=== PATIENT | male | born 1965 | race Native Hawaiian/Other Pacific Islander ===

== ENCOUNTER 2018-05-15 19:32 | Emergency (ER) | payer OTHER ==
[~2018-05-15] VITALS: Ht 167.6 cm; Wt 105.0 kg
[~2018-05-15 19:32] MED LIST: UNABLE
[2018-05-15] MEDS ORDERED: HCTZ 25MG TAB25 MG PO (21:10)
[2018-05-15] MEDS ORDERED: ONGLYZA5 MG PO (21:10)
[2018-05-15] MEDS ORDERED: ABILIFY30 MG PO (21:10)
[2018-05-15] MEDS ORDERED: SEROQUEL300 MG PO (21:11)
[2018-05-15] MEDS ORDERED: DULCOLAX STOOL100 MG PO (21:11)
[2018-05-15] MEDS ORDERED: CRESTOR20 MG PO (21:12)
[2018-05-15] MEDS ORDERED: MICRO-K 10 EXT10 MEQ PO (21:12)
[2018-05-15] MEDS ORDERED: VISTARIL 2525 MG/CAP PO (21:12)
[2018-05-15] MEDS ORDERED: GLUCOTROL 5M5 MG/TAB PO (21:12)
[2018-05-15] MEDS ORDERED: LOPRESSOR100 MG PO (21:13)
[2018-05-15] MEDS ORDERED: EFFEXOR-XR150 MG PO (21:13)
[2018-05-15] MEDS ORDERED: PRINIVIL20 MG PO (21:13)
[2018-05-15] MEDS ORDERED: VITAMIN D31000 I1 PO (21:14)
[2018-05-15] MEDS ORDERED: EPA FISH OIL1 SGL PO (21:14)
[2018-05-15] MEDS ORDERED: DESYREL 100MG100 MG PO (21:14)
[2018-05-15] MEDS ORDERED: GLUCOPHAGE500 MG/TAB PO (21:15)
[2018-05-15 21:19] VITALS: BP 123/63; PULSE 90; TEMP 98.6
== END 2018-05-15 21:18 | disposition home or self-care (01) ==
LOC: COL.ER 19:32
DX: S90.02XA Contusion of left ankle, initial encounter (principal); E11.9 Type 2 diabetes mellitus without complications; I10 Essential (primary) hypertension; F43.10 Post-traumatic stress disorder, unspecified; F17.210 Nicotine dependence, cigarettes, uncomplicated; Z79.84 Long term (current) use of oral hypoglycemic drugs; X58.XXXA Exposure to other specified factors, initial encounter

== ENCOUNTER 2024-04-24 11:31 | Emergency (ER) | payer OTHER ==
[~2024-04-24] VITALS: Ht 167.6 cm; Wt 106.8 kg
[~2024-04-24 11:31] MED LIST changes: +ABILIFY30 MG PO; +CRESTOR20 MG PO; +DESYREL 100MG100 MG PO; +DULCOLAX STOOL100 MG PO; +EFFEXOR-XR150 MG PO; +EPA FISH OIL1 SGL PO; +GLUCOPHAGE500 MG/TAB PO; +GLUCOTROL 5M5 MG/TAB PO; +HCTZ 25MG TAB25 MG PO; +LOPRESSOR100 MG PO; +MICRO-K 10 EXT10 MEQ PO; +ONGLYZA5 MG PO; +PRINIVIL20 MG PO; +SEROQUEL300 MG PO; +VISTARIL 2525 MG/CAP PO; +VITAMIN D31000 I1 PO
[2024-04-24 11:35] VITALS: TEMP 98.4
[2024-04-24 12:44] VITALS: BP 123/71; PULSE 82
== END 2024-04-24 12:48 | disposition home or self-care (01) ==
LOC: COL.ER 11:31
DX: S83.92XA Sprain of unspecified site of left knee, initial encounter (principal); Z87.891 Personal history of nicotine dependence; X50.1XXA Overexertion from prolonged static or awkward postures, initial encounter; Y93.01 Activity, walking, marching and hiking
CPT/HCPCS: L1846